=== PATIENT | male | born 1965 | race Caucasian/White ===

== ENCOUNTER → 2016-07-10 | Outpatient (CLI) | payer BC, OTHER | LOC: US 07-02 07:45 | DX: R74.0 Nonspecific elevation of levels of transaminase and lactic acid dehydrogenase [LDH] (principal); K76.0 Fatty (change of) liver, not elsewhere classified | CPT/HCPCS: 76705 ==

== ENCOUNTER 2020-03-07 11:09 | Emergency (ER) | payer BC ==
[~2020-03-07 11:09] MED LIST: CYCLOBENZAPRINE10 MG PO; IBUPROFEN800 MG PO
[2020-03-07 12:03] LABS: HEMOGLOBIN 13.7 gm/dl (14.0-17.5); RED BLOOD COUNT 4.67 M/UL (4.20-5.50); WHITE BLOOD COUNT 5.1 K/UL (4.5-11.0)
[2020-03-07 12:25] LABS: BUN/CREATININE RATIO 23 (0-10)
== END 2020-03-07 13:15 | disposition home or self-care (01) ==
LOC: ER1 11:09
PROVIDERS: Family Medicine
DX: U07.1 COVID-19 (principal); E11.9 Type 2 diabetes mellitus without complications; J45.909 Unspecified asthma, uncomplicated
CPT/HCPCS: 71045; 80053; 85025; 93005; 99285

== ENCOUNTER 2020-03-12 00:01 | Emergency (ER) | payer BC ==
[2020-03-12 02:02] LABS: HEMOGLOBIN 13.1 gm/dl (14.0-17.5); RED BLOOD COUNT 4.5 M/UL (4.20-5.50); WHITE BLOOD COUNT 8.6 K/UL (4.5-11.0)
[2020-03-12 02:19] LABS: BUN/CREATININE RATIO 32 (0-10)
[2020-03-12] MEDS ORDERED: ZITHROMAX500 MG PO (03:41)
== END 2020-03-12 05:32 | disposition home or self-care (01) ==
LOC: ER1 00:01
DX: U07.1 COVID-19 (principal); J12.82 Pneumonia due to coronavirus disease 2019; J44.9 Chronic obstructive pulmonary disease, unspecified; E11.9 Type 2 diabetes mellitus without complications; Z79.84 Long term (current) use of oral hypoglycemic drugs
CPT/HCPCS: 71045; 80053; 82550; 82553; 83874; 84484; 85025; 85379; 93005; 96374; 99285; J1100; M0239; Q9967

== ENCOUNTER → 2021-09-12 | Outpatient (CLI) | payer BC ==
[~2021-09-12] MED LIST changes: +ZITHROMAX500 MG PO
== END ==
LOC: KOH-I 12:40
DX: M25.511 Pain in right shoulder (principal); M75.111 Incomplete rotator cuff tear or rupture of right shoulder, not specified as traumatic; R93.7 Abnormal findings on diagnostic imaging of other parts of musculoskeletal system
CPT/HCPCS: 73221